=== PATIENT | female | born 1990 ===

== ENCOUNTER 2022-11-01 08:40 | Inpatient (IN) | payer OTHER ==
[~2022-11-01] VITALS: Ht 157.5 cm; Wt 3.2 kg
[2022-11-02] MEDS ORDERED: PRENATABS RX T1 EACH PO (12:16)
[2022-11-07] MEDS ORDERED: KETO10TA2 PO (07:06)
[2022-11-07] MEDS ORDERED: OXYC1TAB9 PO (07:07)
== END 2022-11-07 12:59 | disposition home or self-care (01) | DRG 785 ==
LOC: LDR 11-04 12:22 → O/R 11-04 16:07 → OB/GYN 11-04 17:49
PROVIDERS: Obstetrics & Gynecology Maternal & Fetal Medicine; ADMIT Obstetrics & Gynecology Gynecology; ATTEND Obstetrics & Gynecology Gynecology
PROC: 0UB70ZZ Excision of Bilateral Fallopian Tubes, Open Approach (ICD-10-PCS; 2022-11-04)
PROC: 4A1HXCZ Monitoring of Products of Conception, Cardiac Rate, External Approach (ICD-10-PCS; 2022-11-04)
PROC: 10D00Z1 Extraction of Products of Conception, Low, Open Approach (ICD-10-PCS; principal; 2022-11-04 15:00)
DX: O34.211 Maternal care for low transverse scar from previous cesarean delivery (principal); Z3A.38 38 weeks gestation of pregnancy; Z30.2 Encounter for sterilization; Z20.822 Contact with and (suspected) exposure to COVID-19; Z37.0 Single live birth

== ENCOUNTER 2022-11-04 10:02 | Outpatient (CLI) | payer OTHER ==
[~2022-11-04 10:02] MED LIST: PRENATABS RX T1 EACH PO
== END 2022-11-04 12:21 | disposition still patient (30) ==
LOC: NST 10:02
PROVIDERS: ATTEND Obstetrics & Gynecology
DX: Z34.83 Encounter for supervision of other normal pregnancy, third trimester (principal)